=== PATIENT | male | born 1945 | race Caucasian/White ===

== ENCOUNTER → 2017-01-11 | Outpatient (CLI) | payer MEDICARE, BC ==
[~2017-01-11] MED LIST: ASPIRIN LO-DOSE81 MG PO; LIPITOR20 M1 PO; NORCO 5-325 TA1 EACH PO
== END | disposition disaster alternative care site (69) ==
LOC: GRAD 15:33
DX: I71.4 Abdominal aortic aneurysm, without rupture (principal); I70.90 Unspecified atherosclerosis; N20.0 Calculus of kidney; K80.20 Calculus of gallbladder without cholecystitis without obstruction; N40.0 Benign prostatic hyperplasia without lower urinary tract symptoms
CPT/HCPCS: Q9967

== ENCOUNTER → 2017-01-11 | Outpatient (CLI) | payer MEDICARE ==
[2017-01-11 15:08] LABS: BASOPHIL % 0.3 %; EOSINOPHIL # 0.1 K/uL (0.0-0.5); EOSINOPHIL % 1.9 %; IMMATURE GRANULOCYTE % 0.3 %; LYMPHOCYTE # 1.5 K/uL (0.8-4.0); LYMPHOCYTE % 20.4 %; MCH 33.3 pg (27.0-34.0); MCHC 34.8 gm/dL (32.0-36.5); MCV 95.6 fl (83.0-98.0); MONOCYTE # 0.6 K/uL (0.0-1.0); MPV 9.3 fl (9.4-12.4); NEUTROPHIL # (ANC) 5.1 K/uL (1.4-9.0); NEUTROPHIL % 69.1 %; NRBC % 0 /100WBC (0-0.00); PLATELET COUNT 186 K/uL (150-450); RBC 4.81 M/uL (3.50-5.50); RDW-CV 12.3 % (11.9-14.6); WBC 7.4 K/uL (4.0-11.0)
[2017-01-11 15:19] LABS: ALBUMIN 3.9 gm/dL (3.5-5.0); ANION GAP 13.1 (10.0-19.0); CALCIUM 9.2 mg/dL (8.5-10.5); CREATININE 1.1 mg/dL (0.6-1.3); POTASSIUM 4.1 mMol/L (3.7-5.1); TOTAL BILIRUBIN 0.7 mg/dL (0.0-1.5); TOTAL PROTEIN 7.4 g/dL (6.0-8.4)
== END | disposition disaster alternative care site (69) ==
LOC: LNHI 15:03
PROVIDERS: Surgery Vascular Surgery
DX: I71.4 Abdominal aortic aneurysm, without rupture (principal); I73.9 Peripheral vascular disease, unspecified

== ENCOUNTER 2017-01-24 17:00 | Inpatient (IN) | payer MEDICARE, BC ==
[~2017-01-24] VITALS: Ht 172.7 cm; Wt 73.6 kg
--- NOTE | ~2017-01-24 | OR ---
PATIENT'S NAME: DEDE SEAMAN [facility] AGE: 71 Y [address] ROOM: [place] [address] LOCATION: GPCU ADMIT DATE: 01/31/2017 OR/Procedure Report DISCHARGE DATE: FAMILY PHYSICIAN: Rony Maurer MD ATTENDING PHYSICIAN: ASHLEY SCHULTZ SURGEON: Ashley Schultz MD MARKETING STRATEGY MANAGER: DATE OF PROCEDURE: 01/31/2017 PREOPERATIVE DIAGNOSIS: Abdominal aortic aneurysm. POSTOPERATIVE DIAGNOSIS: Abdominal aortic aneurysm. PROCEDURE: Endovascular repair of abdominal aortic aneurysm using the AFX graft. ANESTHESIA: General. ESTIMATED BLOOD LOSS: 300 mL. OPERATIVE FINDINGS: Repair of aneurysm without any evidence of endoleak. DESCRIPTION OF PROCEDURE: The patient was brought to the laborer operator, placed supine on the laborer operator table, placed under general anesthesia, and prepped and draped in a sterile manner. Preoperative time-out was performed. The patient received preoperative antibiotics. We made a cutdown on the right groin down to the fascia. We incised the fascia in a longitudinal manner. We dissected out the common femoral artery. We then percutaneously gained access via the left groin. A 17-[place] sheath was placed into the ipsilateral sural vessel which in this case was the right femoral artery and a 7-[place] sheath was then placed in the contralateral side, the patient's left femoral artery. Angiogram was performed to measure the vessel length and characterize the anatomy and its topography ipsi/contra access vessels were not pre-dilated. We exchanged the Glidewire on the right for a Lunderquist stiff wire. We loaded the main body which was a 25/120 AFX body bifurcated device onto the stiff wire and advanced the contralateral wire up through the 19-[place] Citizen over the AFX introducer sheath while using wire guide. Contralateral wire snared and pulled out the contra side. AFX-2 bifurcated device was transferred into the AFX introducer sheath and then advanced under fluoro until the distal limbs were above the aortic bifurcation releasing the limbs of the graft, pulled the entire system down on the aortic bifurcation. We deployed the main body of the graft by pulling on the control cord handle. We deployed the contralateral limb by pulling the yellow limb cover and then advancing a pigtail catheter over the contra wire until the tip was in contact with the wire lock. We held the pigtail catheter in place and pulled on the contra PATIENT'S NAME: DEDE SEAMAN [facility] AGE: 71 Y [address] ROOM: [address] [place], [place] [address] [facility] ADMIT DATE: 01/31/2017 OR/Procedure Report DISCHARGE DATE: FAMILY PHYSICIAN: Rony Maurer MD ATTENDING PHYSICIAN: ASHLEY SCHULTZ wire to release it from the wire lock. We deployed the ipsilateral limb by pinning the inner core and retracting the AFX introducer sheath. We advanced and deployed the 28 x 28 AFX suprarenal endograft and performed an angiogram to visualize the renal arteries. We removed the extension delivery device from the AFX introducer sheath and advanced a Coda balloon to the proximal end of the Endograft main body balloon endograft system throughout the body and ipsi limb. We inserted a 14 x 2 balloon from the contra side and ballooned the contra iliac limb of the bifurcated device. We performed final angiogram and removed catheters and sheaths and closed vascular access. The Angio-Seal was used on the left. We repaired the arteriotomy on the right. When we attempted to repair it, there was a dense burden of plaque and it appeared that it had been dissected off. When we further expected, it also looked as though the posterior wall of the artery had been damaged. We gained proximal and distal control of clamps. We removed the sheath. We then extended the arteriotomy with Solis scissors. We then removed the area of plaque. The posterior wall indeed was damaged. We repaired it with a running 6-0 Prolene in the posterior wall and then we patched the artery with a bovine pericardial patch. The clamp was removed, and there was good flow in the artery which was confirmed with Doppler signals in the foot. Deep layers were closed with 2-0 and 3-0 Vicryl. Skin was closed with running 4-0 Monocryl. The patient received a total of 7000 units of heparin for the case and was reversed with protamine at the end. ASHLEY SCHULTZ MD FKM/modl /[id number] d: 01/31/172119 t: 02/01/17 1514, OPERATIVE SUMMARY
[~2017-01-24 17:00] MED LIST changes: -NORCO 5-325 TA1 EACH PO
[2017-01-31 13:48] LABS: ANION GAP 10.7 (10.0-19.0); CALCIUM 8.3 mg/dL (8.5-10.5); CREATININE 1.1 mg/dL (0.6-1.3); POTASSIUM 3.7 mMol/L (3.7-5.1)
--- NOTE | 2017-01-31 15:22 | NUR ---
Introduced self and role of care management to patient. He lives with his in [place]. He states that he is able to do all his own ADL's. His will be available to assist as needed on discharge. He plans on returning home on discharge. He denies any needs at this time. Will continue to follow.
--- NOTE | 2017-01-31 16:46 | NUR ---
Significant Event: A/O x3, cooperative with cares. VSS, SBPs 90-110s, HRs 50-60s, on room air. NO c/o pain. Incisions to bilateral groins; air strip dressings C/D/I. Art line. Herrera draining yellow urine. Dr. Bermeo notified of consult. Follow up: may ambulate after 0030; d/c herrera et art line in early AM
[2017-02-01 04:26] LABS: BASOPHIL % 0.2 %; EOSINOPHIL % 0.1 %; HEMATOCRIT 38.8 % (37.0-53.0); HEMOGLOBIN 13.3 g/dL (11.0-16.0); IMMATURE GRANULOCYTE # 0.1 K/uL (0.0-0.3); IMMATURE GRANULOCYTE % 0.6 %; LYMPHOCYTE # 1.2 K/uL (0.8-4.0); MCH 33.3 pg (27.0-34.0); MCHC 34.3 gm/dL (32.0-36.5); MCV 97.2 fl (83.0-98.0); MPV 9.7 fl (9.4-12.4); NEUTROPHIL # (ANC) 9.8 K/uL (1.4-9.0); NEUTROPHIL % 81.1 %; NRBC % 0 /100WBC (0-0.00); RBC 3.99 M/uL (3.50-5.50); RDW-CV 12.4 % (11.9-14.6); WBC 12.1 K/uL (4.0-11.0)
[2017-02-01 04:29] LABS: PLATELET COUNT 129 K/uL (150-450)
[2017-02-01 04:40] LABS: ALBUMIN 2.8 gm/dL (3.5-5.0); ANION GAP 10.2 (10.0-19.0); CALCIUM 8.3 mg/dL (8.5-10.5); CREATININE 1.1 mg/dL (0.6-1.3); PHOSPHORUS 2.7 mg/dL (2.5-4.9); POTASSIUM 4.2 mMol/L (3.7-5.1)
--- NOTE | 2017-02-01 04:57 | NUR ---
Pt A&Ox4. VSS on RA. Taking PO without difficulty, good UOP, herrera D/C at 0400. Art line also D/C at 0400, site covered with pressure bandage, soft, CSM intact. Bilat groin sites covered with dressings, CDI, soft. Right side remains slightly more firm, not a new finding since surgery. CSM intact. Up to ambulate in room at 0040 with no difficulty. Pleasant and cooperative. Denies pain throughout shift. Possible D/C today.
[2017-02-01] MEDS ORDERED: NORCO 5-325 TA1 EACH PO (10:44)
--- NOTE | 2017-02-01 12:58 | NUR ---
Significant Event: Patient is alert and oriented. Up with SBA. IVF DC'd. No complains of pain. Bilat groin sites still covered with dressings. Instructions to remove on 02/03 given to patient during discharge. Discharge instructions provided to patient and family and verbalized understanding. Patient Discharged per ambulation accompanied by nursing informatics analyst to front lobby.
== END 2017-02-01 12:35 | disposition disaster alternative care site (69) | DRG 269 ==
LOC: GPCU 01-31 06:00
PROVIDERS: ADMIT Surgery Vascular Surgery
PROC: 04V03DZ Restriction of Abdominal Aorta with Intraluminal Device, Percutaneous Approach (ICD-10-PCS; principal; 2017-01-31)
DX: I71.4 Abdominal aortic aneurysm, without rupture (principal); E78.5 Hyperlipidemia, unspecified; N40.0 Benign prostatic hyperplasia without lower urinary tract symptoms; I25.10 Atherosclerotic heart disease of native coronary artery without angina pectoris
CPT/HCPCS: C1725; C1760; C1769; C1874; C1894; C2628; J0690; J1100; J1644; J1650; J2001; J2250; J2405; J2720; J7030